=== PATIENT | male | born 1955 | race Caucasian/White ===

== ENCOUNTER 2023-08-20 10:04 | Emergency (ER) | payer MEDICARE, OTHER, SELFPAY ==
[2023-08-20 10:34] VITALS: BP 120/78
[2023-08-20 11:02] LABS: % Basophils 0.4 % (0-2); % Eosinophils 0.6 % (0-6); % Immature Granulocytes 0.4 % (0-0.5); % Lymphocytes 20.5 % (20.5-51.1); % Monocytes 9.2 % (1.7-9.3); % Neutrophils 68.9 % (42.2-75.2); Absolute Monocytes 0.4 10^3/uL (0.1-0.6); Absolute Neutrophils 3.2 10^3/uL (1.4-6.5); Hematocrit 40.6 % (39.0-52.0); Hemoglobin 14.9 g/dL (13.0-18.0); Mean Corp Hgb Conc. 36.7 g/dL (33.0-37.0); Mean Corpuscular Hgb 30.7 pg (27.0-31.0); Mean Corpuscular Volume 83.7 fL (80.0-94.0); Mean Platelet Volume 9.4 fL (7.4-10.4); Nucleated Red Blood Cells % 0 % (-); Platelet Count 237 10^3/uL (130-400); Red Blood Cell Count 4.85 10^6/uL (4.70-6.10); Red Cell Dist. Width 11.9 % (11.5-14.5); White Blood Cell Count 4.7 10^3/uL (4.8-10.8)
[2023-08-20 11:08] LABS: ALT (SGPT) 28 U/L (0-50); AST (SGOT) 34 U/L (17-59); Albumin 4.6 g/dl (3.5-5.0); Alkaline Phosphatase 75 U/L (38-126); Blood Urea Nitrogen 12 mg/dl (9-20); Calcium 9.1 mg/dl (8.4-10.2); Carbon Dioxide 28 mmol/L (22-30); Chloride 100 mmol/L (98-107); Glucose 95 mg/dl (70-99); Potassium 4.5 mmol/L (3.5-5.1); Sodium 133 mmol/L (135-145); Total Bilirubin 0.9 mg/dl (0.2-1.3); Total Protein 7.3 g/dl (6.3-8.2); eGFR > 60.00
[2023-08-20 12:12] VITALS: BMI 23.6
[2023-08-20] MEDS: ZOFRAN ODT (ORALLY DISINTEGRATING) 4 MG PO (12:34)
[2023-08-20] MEDS: ULTRAM 50 MG PO ×2 (12:34→14:12)
[2023-08-20 12:44] VITALS: BP 109/72
--- NOTE | 2023-08-20 12:47 | ED.GENMED ---
History of Present Illness
General
Chief Complaint: Male Genito-Urinary Symptoms
Source: patient and spouse
Exam Limitations: none
Time Seen by Provider: 08/20/23 11:45
Nursing documentation reviewed up to this point in time: agreed with
Travel History
Have you had any contact with someone who has COVID-19?: No
Do you have any symptoms of coronavirus? Fever > 100 degrees, chills, cough, shortness of breath, sore throat, loss of taste or smell, muscle aches, or headache?: No
History of Present Illness
History of Present Illness:
The patient is a 67-year-old man with past medical history of dementia with recent prostatitis. His reports that Levaquin had helped with the prostatitis. She reports that since last night, he has been complaining of pain at the tip of his
penis and has been more agitated and is having hallucinations. She denies fever. She reports he is nauseous but not vomiting. The patient complains of pain at the tip of his penis. He denies back pain. reports that they have an appointment
with Dr. Caldera this Monday
Past History
Past History
ED Past Medical History: Other (Difficulty with balance, memory loss)
ED Past Surgical History: Other (Hernia repair)
Social History
Tobacco: Non-smoker
Alcohol: None
Drug: None
Personal:
Living: with family
Employment: Retired
Family History
Family History: Other
Review of Systems
Review of Systems
Allergies reviewed?: Yes
Unable to obtain full review of systems at this time due to: dementia
Other source history: family
All Other Systems: Not applicable
Constitutional: Reports no symptoms
EENT: Reports no symptoms
Respiratory: Reports no symptoms
Cardiac: Reports no symptoms
ABD/GI: Reports nausea
: Reports dysuria and frequency; Denies difficulty voiding
Musculoskeletal: Reports no symptoms
Skin: Reports no symptoms
Phy Exam
Physical Exam
Physical Exam:
Physical Exam
General: no apparent distress, not acutely ill
Neck: supple. no meningeal signs. normal psoterior pharynx
Heart: s1/s2 regular rate and rhythm, no murmur. equal radial pulses.
Lungs: no acute respiratory distress. clear bilaterally
Abdomen: normal bowel sounds. Mild pelvic tenderness. No erythema or drainage at tip of penis
Neuro: alert. No focal neurological deficits
Skin: no rash
Psychiatric: well kept. interactive and cooperative
Extremities: no edema. no calf tenderness. negative homans. good distal pulses
Course
Orders/Labs/Results
Orders:
Orders
08/20/23 10:48
CMP [Comprehensive Metabolic Panel] Urgent
Complete Blood Count/With Diff Urgent
08/20/23 12:27
Ondansetron Orally Disint [Zofran Odt (Orally Disintegrating)] 4 mg PO NOW STA
Tramadol HCl [Ultram] 50 mg PO NOW STA
08/20/23 12:56
Urinalysis Reflex To Culture Urgent
Date Specimen was Collected: 08/20/23
Time Specimen was Collected: 12:54
08/20/23 14:03
Tramadol HCl [Ultram] 50 mg PO NOW STA
08/20/23 14:04
LevoFLOXacin [Levaquin] 250 mg PO NOW STA
08/20/23 14:23
Add On - Microbiology Urgent
Tests Added?: urine culture
Abnormal Lab Results
08/20/23
10:48
WBC 4.7 L 10^3/uL
(4.8-10.8)
Absolute Lymphs (auto) 1.0 L 10^3/uL
(1.2-3.4)
Sodium 133 L mmol/L
(135-145)
08/20/23 10:48
08/20/23 10:48
Vital Signs
Initial and Last Documented VS:
Initial Vital Signs
Temp Pulse Resp BP Pulse Ox
98.2 F 64 18 120/78 98
08/20/23 10:34 08/20/23 10:34 08/20/23 10:34 08/20/23 10:34 08/20/23 10:34
Last Documented Vital Signs
Temp Pulse Resp BP Pulse Ox
98.2 F 62 18 122/74 98
08/20/23 10:34 08/20/23 14:15 08/20/23 14:15 08/20/23 14:15 08/20/23 14:15
MDM/Problems Addressed
Differential Diagnosis Includes:
UTI, prostatitis, renal stone colic
MDM/Problems Addressed:
Patient presents with acute dysuria and increased agitation
Chronic conditions affecting care:
Dementia
*Pulse Oximetry
Patient hypoxic: no
*EKG
Interpreted by ED Provider?: NA
*Studio Receptionist Interpretation
Rate: Studio Receptionist- N/A
*Critical Care Note
Total Time (30-74mins, 75-104mins- exclusive of procedures): Not Applicable
Data Reviewed
Review of Other/Old Records Reveals: Radiology Studies (Scrotal ultrasound reviewed from 06/2023 which showed no abnormality)
Source: patient and spouse
Patient Management
Social determinants of health affecting care: Living situation and Strong social support
Escalation/DeEscalation of care consider admission/obs:
Patient's urine does not show an obvious infection, however, his reports that last time it did not show an infection and ended up being a prostatitis. Therefore, we will start him on antibiotics. Urine culture sent
ED Attending Note
-
Portions of this chart may have been created with voice recognition software.� Occasional wrong word or��sound alike� substitutions may have occurred due to the inherent limitations of voice recognition software.
Discharge Plan
Departure
Patient Disposition: Home (Routine Discharge)
Date of Disposition: 08/20/23
Time of Disposition: 14:03
Patient with high blood pressure during this ER visit?: Yes
Condition: Good
Covid-19: Not Applicable
Discharge Problem:
Dysuria
Instructions: Dysuria, Adult (DC), BLOOD PRESSURE
Prescriptions:
New
ciprofloxacin HCl [Cipro] 250 mg tablet
250 mg PO BID Qty: 13 0RF
tramadol 25 mg tablet
50 mg PO BID PRN (Reason: Pain) Qty: 10 0RF
No Action
donepezil 10 MG tablet
10 mg PO HS
acetaminophen [Tylenol Extra Strength] 500 MG tablet
1,000 mg PO DAILYPRN PRN (Reason: mild pain)
memantine 10 MG tablet
10 mg PO BID
sulfamethoxazole-trimethoprim 800-160 mg Tablet
1 tab PO BID
Patient Comments:
06/30/23 filled on 06/28/23 #14
Theragen Tablet
1 tab PO DAILY
phenazopyridine 100 mg tablet
100 mg PO TID PRN (Reason: Pain) Qty: 10 0RF
sulfamethoxazole-trimethoprim [Bactrim DS] 800-160 mg tablet
1 tab PO Q12H Qty: 14 0RF
Referrals:
Yue Talley MD, Resident [Family Provider] -
Activity Restrictions/Additional Instructions:
Follow-up with urology as scheduled this Monday
Interventions
Interventions:
*Risk Screen - Suicide Last Done: 08/20/23 12:11
*General Assessment Last Done: 08/20/23 12:11
*Neglect/Abuse Screening Last Done: 08/20/23 12:11
ED- Fall Risk Assessment Last Done: 08/20/23 12:21
*ED COVID-19 Vaccine History Last Done: 08/20/23 10:34
ED-Male Genitourinary Assessment Last Done: 08/20/23 12:20
[2023-08-20 13:20] LABS: Urine Albumin Negative (Neg - Trace); Urine Bilirubin Negative (Negative); Urine Character Clear (Clear); Urine Color Yellow; Urine Glucose Negative (Negative); Urine Ketone Negative (Negative); Urine Leukocyte Negative (Negative); Urine Nitrite Negative (Negative); Urine Occult Blood Negative (Negative); Urine Urobilinogen Negative (Neg - 1+); Urine pH 6.5 (5.0-9.0)
[2023-08-20] MEDS: LEVAQUIN 250 MG PO (14:12)
[2023-08-20 14:15] VITALS: BP 122/74
== END 2023-08-20 14:29 | disposition home or self-care (01) ==
LOC: EMR 10:04
PROVIDERS: Emergency Medicine; EMERGENCY PHYSICIAN Emergency Medicine; FAMILY PHYSICIAN Student in an Organized Health Care Education/Training Program
DX: R30.0 Dysuria (principal); F03.92 Unspecified dementia, unspecified severity, with psychotic disturbance; F03.911 Unspecified dementia, unspecified severity, with agitation
CPT/HCPCS: 99283; 80053; 81003; 85025; 87086

== ENCOUNTER 2023-12-07 13:22 | Emergency (ER) | payer MEDICARE, OTHER, SELFPAY ==
[2023-12-07 13:42] VITALS: BP 123/81
[2023-12-07 14:05] LABS: % Basophils 0.6 % (0-2); % Eosinophils 3.4 % (0-6); % Immature Granulocytes 0.2 % (0-0.5); % Lymphocytes 24.2 % (20.5-51.1); % Monocytes 9.8 % (1.7-9.3); % Neutrophils 61.8 % (42.2-75.2); Absolute Eosinophils 0.2 10^3/uL (0-0.7); Absolute Lymphocytes 1.1 10^3/uL (1.2-3.4); Absolute Monocytes 0.5 10^3/uL (0.1-0.6); Absolute Neutrophils 2.9 10^3/uL (1.4-6.5); Hematocrit 41.8 % (39.0-52.0); Hemoglobin 14.4 g/dL (13.0-18.0); Mean Corp Hgb Conc. 34.4 g/dL (33.0-37.0); Mean Corpuscular Hgb 29.8 pg (27.0-31.0); Mean Corpuscular Volume 86.5 fL (80.0-94.0); Mean Platelet Volume 9.5 fL (7.4-10.4); Nucleated Red Blood Cells % 0 % (-); Platelet Count 204 10^3/uL (130-400); Red Blood Cell Count 4.83 10^6/uL (4.70-6.10); Red Cell Dist. Width 12.5 % (11.5-14.5); White Blood Cell Count 4.7 10^3/uL (4.8-10.8)
[2023-12-07 14:19] LABS: ALT (SGPT) 22 U/L (0-50); AST (SGOT) 30 U/L (17-59); Albumin 4.4 g/dl (3.5-5.0); Alkaline Phosphatase 85 U/L (38-126); Blood Urea Nitrogen 16 mg/dl (9-20); Calcium 9.3 mg/dl (8.4-10.2); Carbon Dioxide 26 mmol/L (22-30); Chloride 104 mmol/L (98-107); Glucose 82 mg/dl (70-99); Potassium 4.7 mmol/L (3.5-5.1); Sodium 139 mmol/L (135-145); Total Bilirubin 0.7 mg/dl (0.2-1.3); Total Protein 7.4 g/dl (6.3-8.2); eGFR > 60.00
[2023-12-07 16:00] VITALS: BP 100/83
[2023-12-07 16:22] LABS: Urine Albumin Negative (Neg - Trace); Urine Bilirubin Negative (Negative); Urine Character Clear (Clear); Urine Color Yellow; Urine Glucose Negative (Negative); Urine Ketone Negative (Negative); Urine Leukocyte Negative (Negative); Urine Nitrite Negative (Negative); Urine Occult Blood Negative (Negative); Urine Specific Gravity 1.025 (<1.030); Urine Urobilinogen Negative (Neg - 1+)
[2023-12-07 17:00] VITALS: BP 121/77
--- NOTE | 2023-12-07 17:31 | ED.GENMED ---
History of Present Illness
General
Chief Complaint: Change in Mental Status
Source: family
Time Seen by Provider: 12/07/23 15:39
Travel History
Have you had any contact with someone who has COVID-19?: No
Do you have any symptoms of coronavirus? Fever > 100 degrees, chills, cough, shortness of breath, sore throat, loss of taste or smell, muscle aches, or headache?: No
History of Present Illness
History of Present Illness:
67-year-old male with past medical history of Alzheimer's disease presenting to the ER at the request of primary care provider after patient had an unwitnessed fall yesterday, today family felt patient was a little bit more fatigued and combative
than usual so it was recommended patient come to the ER to be seen and potentially have a CT scan of the head done. Patient himself is unable to provide any history secondary to his baseline mental status. Family does report that over the last few
weeks patient does seem to have a little bit more difficulty ambulating which they feel is likely more due to his Alzheimer's. Family states the only other thing that they have noticed is patient complaining of some mild left ear pain but they did
not notice any trauma, drainage or bleeding. Patient is noted to be very hard of hearing.
Past History
Past History
ED Past Medical History: Other (Difficulty with balance, memory loss)
ED Past Surgical History: Other (Hernia repair)
Social History
Tobacco: Non-smoker
Alcohol: None
Drug: None
Personal:
Living: with family
Employment: Retired
Family History
Family History: Other
Review of Systems
Review of Systems
All Other Systems: ROS reviewed and negative except as documented in HPI and ROS
Phy Exam
Physical Exam
Physical Exam:
GENERAL: Alert , in no apparent distress
EYE: conjunctiva clear
NECK: Supple, no significant adenopathy.
ENT: o/p clr, mmm. TMs normal bilateral, no cerumen impaction or discharge
CARDIAC: Regular rate and rhythm
LUNGS: Clear breath sounds bilaterally, no acute respiratory distress, no wheezes/rales/rhonchi
NEUROLOGICAL: Alert and oriented
SKIN: Warm and dry, skin intact.
MUSCULOSKELETAL: well perfused.
PSYCH: Normal and appropriate interaction.
Scores
Heart Failure Risk
Heart Failure Risk Score: Not Applicable
Heart Score for Chest Pain Patients
STEMI patient?: Not applicable
Withdrawal Assessment of Alcohol
Withdrawal Assessment Completed?: Not applicable
Course
Orders/Labs/Results
Orders:
Orders
12/07/23 13:46
CT Head W/o Iv Contrast Urgent
Comment:
Reason For Exam: change in mental status
12/07/23 13:53
Complete Blood Count/With Diff Urgent
Comprehensive Metabolic Panel Urgent
12/07/23 16:14
Urinalysis Reflex To Culture Urgent
Date Specimen was Collected: 12/07/23
Time Specimen was Collected: 13:46
Abnormal Lab Results
12/07/23
13:53
WBC 4.7 L 10^3/uL
(4.8-10.8)
Absolute Lymphs (auto) 1.1 L 10^3/uL
(1.2-3.4)
Monocytes % 9.8 H %
(1.7-9.3)
12/07/23 13:53
12/07/23 13:53
Vital Signs
Initial and Last Documented VS:
Initial Vital Signs
Temp Pulse Resp BP Pulse Ox
98.7 F 66 18 123/81 99
12/07/23 13:42 12/07/23 13:42 12/07/23 13:42 12/07/23 13:42 12/07/23 13:42
Last Documented Vital Signs
Temp Pulse Resp BP Pulse Ox
98.7 F 71 11 121/77 100
12/07/23 13:42 12/07/23 17:30 12/07/23 17:30 12/07/23 17:00 12/07/23 17:30
MDM/Problems Addressed
Differential Diagnosis Includes:
Progression of Alzheimer's, intracranial bleeding, urinary tract infection
MDM/Problems Addressed:
67-year-old male presenting to the emergency department for evaluation after reported unwitnessed fall yesterday, today reportedly a little bit more and combative. Labs and a head CT had been ordered by triage and are ultimately unremarkable for
any acute pathology. Urinalysis pending. Anticipate discharge home pending results. Family already feels comfortable with this plan.
Chronic conditions affecting care: Neurological disorder
Acute Exacerbation and/or Progression of Chronic Illness: Neurological disorder
*Radiology
Radiology exam reviewed: radiology read reviewed
*Pulse Oximetry
Patient hypoxic: no
*Critical Care Note
Total Time (30-74mins, 75-104mins- exclusive of procedures): Not Applicable
Data Reviewed
Review of Other/Old Records Reveals: Labs and Records
Source: family
Comment
Comment:
Patient's urinalysis is unremarkable for any acute findings. Patient is otherwise stable for discharge home and outpatient management.
ED Attending Note
-
Portions of this chart may have been created with voice recognition software.� Occasional wrong word or��sound alike� substitutions may have occurred due to the inherent limitations of voice recognition software.
Discharge Plan
Departure
Patient Disposition: Home (Routine Discharge)
Date of Disposition: 12/07/23
Time of Disposition: 17:31
Patient with high blood pressure during this ER visit?: No
Discharge Problem:
Dementia
Instructions: Dementia (DC)
Prescriptions:
No Action
donepezil 10 MG tablet
10 mg PO HS
acetaminophen [Tylenol Extra Strength] 500 MG tablet
1,000 mg PO DAILYPRN PRN (Reason: mild pain)
memantine 10 MG tablet
10 mg PO BID
Theragen Tablet
1 tab PO DAILY
tramadol 25 mg tablet
50 mg PO BID PRN (Reason: Pain) Qty: 10 0RF
Referrals:
Mary Jasso MD [Family Provider] -
Interventions
Interventions:
*Risk Screen - Suicide Last Done: 12/07/23 13:45
*General Assessment Last Done: 12/07/23 13:45
*Neglect/Abuse Screening Last Done: 12/07/23 13:45
ED- Fall Risk Assessment Last Done: 12/07/23 15:18
*Nursing Disposition Last Done: 12/07/23 18:03
ED- Neurological Assessment Last Done: 12/07/23 15:18
ED- Cardiac Assessment Last Done: 12/07/23 15:18
ED Swallowing Screen Last Done: 12/07/23 15:18
Discharge Date and Time
Discharge Date/Time: 12/07/23 18:04
Print Language: EMIRATI
== END 2023-12-07 18:04 | disposition home or self-care (01) ==
LOC: EMR 13:22
PROVIDERS: EMERGENCY PHYSICIAN Emergency Medicine; FAMILY PHYSICIAN Internal Medicine Hospice and Palliative Medicine
DX: G30.9 Alzheimer's disease, unspecified (principal); F02.80 Dementia in other diseases classified elsewhere, unspecified severity, without behavioral disturbance, psychotic disturbance, mood disturbance, and anxiety; W19.XXXA Unspecified fall, initial encounter
CPT/HCPCS: 99284; 70450; 80053; 81003; 85025